=== PATIENT | male | born 1995 | race Caucasian/White ===

== ENCOUNTER 2017-02-22 22:05 | Emergency (ER) | payer SELFPAY ==
[2017-02-23 00:45] VITALS: BP 130/79
== END 2017-02-23 00:45 | disposition home or self-care (01) ==
LOC: ED 22:05
DX: S01.81XA Laceration without foreign body of other part of head, initial encounter (principal); S09.90XA Unspecified injury of head, initial encounter; Y04.0XXA Assault by unarmed brawl or fight, initial encounter; Y93.89 Activity, other specified; Y99.8 Other external cause status; Y92.89 Other specified places as the place of occurrence of the external cause
CPT/HCPCS: 90715; J7030